=== PATIENT | female | born 1960 | race African-American/Black ===

== ENCOUNTER 2021-07-04 13:59 | Inpatient (IN) | payer OTHER ==
[~2021-07-04] VITALS: Ht 170.2 cm; Wt 83.1 kg
[2021-07-04] MEDS ORDERED: PIPERACILLIN/TAZ 3.375G PREMIX 50 ML IV ONE (14:30)
[2021-07-04] MEDS ORDERED: DEXAMETHASONE 4MG/ML 1ML VIAL IV ONE (14:30)
[2021-07-04 15:34] LABS: BASOPHILS % 0.4 % (0.0-2.0); EOSINOPHILS % 1.1 % (0.0-5.0); HEMATOCRIT. 24.8 % (36.0-48.0); LYMPHOCYTES % 15.2 % (20.0-50.0); MEAN CORPUSCULAR HEMOGLOBIN 30.3 pg (28.0-32.0); MEAN CORPUSCULAR VOLUME 94.5 fL (81.0-99.0); MEAN PLATELET VOLUME 9.8 fl (7.4-10.4); MONOCYTES % 5.5 % (2.0-8.0); NEUTROPHILS % 77.8 % (40.0-76.0); PLATELET 198 x1000/uL (130-400); RED BLOOD CELL COUNT 2.63 mill/uL (4.2-5.4); RED CELL DISTRIBUTION WIDTH 16.5 % (11.6-14.6)
[2021-07-04 15:40] LABS: CHLORIDE 117 mEq/L (98-107)
[2021-07-04 15:42] LABS: INR 1.6; PROTHROMBIN TIME 16.8 sec (9.6-11.0)
[2021-07-04] MEDS ORDERED: LACTULOSE 20G/30ML UDC PO NR (17:15)
[2021-07-04 17:25] LABS: CLARITY URINE CLEAR (CLEAR); COLOR URINE YELLOW (YELLOW); KETONES URINE TRACE (NEGATIVE); LEUKOCYTE ESTERASE URINE 1+ (NEGATIVE); NITRITE URINE NEGATIVE (NEGATIVE); OCCULT BLOOD URINE 1+ (NEGATIVE); PROTEIN URINE NEGATIVE (NEGATIVE); SPECIFIC GRAVITY URINE 1.014 (1.005-1.030)
[2021-07-04] MEDS ORDERED: GUAIFENESIN 200MG/10ML SUGAR FREE UDC PO PRN (18:15)
[2021-07-04] MEDS ORDERED: ACETAMINOPHEN 325MG TABLET PO PRN ×2 (18:15)
[2021-07-04] MEDS ORDERED: ENOXAPARIN 40MG/0.4ML SYR SUBCUT SCH (18:15)
[2021-07-04] MEDS ORDERED: HYDROCODONE/ACETAMINOPHEN 5/325MG TABLET PO PRN (18:15)
[2021-07-04] MEDS ORDERED: MAGNESIUM/ALUMINUM HYDROXIDE/SIMETHICONE 30ML UDC PO PRN (18:15)
[2021-07-04] MEDS ORDERED: IPRATROPIUM/ALBUTEROL 0.5-3(2.5)MG/3ML NEB NEB PRN (18:15)
[2021-07-04] MEDS ORDERED: CLONIDINE 0.1MG TABLET PO PRN (18:15)
[2021-07-04] MEDS: SODIUM CHLORIDE 0.45% 1,000 ML IV SCH (18:44)
[2021-07-04] MEDS ORDERED: CEFTRIAXONE 2 G PREMIX 50 ML IV SCH (19:00)
[2021-07-04] MEDS ORDERED: AZITHROMYCIN 500 MG TABLET PO NR (19:30)
[2021-07-04] MEDS: IPRATROPIUM/ALBUTEROL 0.5-3(2.5)MG/3ML NEB NEB SCH (20:02)
[2021-07-04 21:20] VITALS: BP 117/78
[2021-07-04 22:02] VITALS: BP 117/78
[2021-07-04] MEDS ORDERED: RIFA550T PO (22:28)
[2021-07-04] MEDS ORDERED: LEVO75TA7 PO (22:28)
[2021-07-04] MEDS ORDERED: FURO20TA4 PO (22:28)
[2021-07-04] MEDS ORDERED: AMLO5TAB88 PO (22:28)
[2021-07-04] MEDS: LACTULOSE 20G/30ML UDC PO SCH (22:52)
[2021-07-04] MEDS: ENOXAPARIN 30MG/0.3ML SYR SUBCUT SCH (22:53)
[2021-07-05] VITALS: BP 130/72
[2021-07-05] MEDS: IPRATROPIUM/ALBUTEROL 0.5-3(2.5)MG/3ML NEB NEB SCH ×6 (01:08→21:23)
[2021-07-05] MEDS: SODIUM CHLORIDE 0.45% 1,000 ML IV SCH ×2 (02:44→14:49)
[2021-07-05 03:45] LABS: PHOSPHORUS 3.3 mg/dL (2.5-4.9)
[2021-07-05 04:00] VITALS: BP 131/85
[2021-07-05] MEDS: LACTULOSE 20G/30ML UDC PO SCH ×2 (04:29→21:45)
[2021-07-05] MEDS: LEVOTHYROXINE SODIUM 75MCG TABLET PO SCH (04:29)
[2021-07-05 07:37] LABS: BASOPHILS % 0.1 % (0.0-2.0); EOSINOPHILS % 0.1 % (0.0-5.0); HEMATOCRIT. 25.8 % (36.0-48.0); HEMOGLOBIN. 8.4 g/dL (12.0-16.0); LYMPHOCYTES % 9.6 % (20.0-50.0); MEAN CORPUSCULAR HEMOGLOBIN 30.3 pg (28.0-32.0); MEAN CORPUSCULAR VOLUME 93.7 fL (81.0-99.0); MEAN PLATELET VOLUME 10.2 fl (7.4-10.4); MONOCYTES % 5.1 % (2.0-8.0); NEUTROPHILS % 85.1 % (40.0-76.0); PLATELET 208 x1000/uL (130-400); RED BLOOD CELL COUNT 2.75 mill/uL (4.2-5.4); RED CELL DISTRIBUTION WIDTH 16.5 % (11.6-14.6)
[2021-07-05 08:00] VITALS: BP 125/72
[2021-07-05] MEDS ORDERED: MAGNESIUM OXIDE 400MG TABLET PO NR (10:00)
[2021-07-05 11:04] LABS: BG BASE EXCESS -9.5 mmol/L (-2.0-2.0); BG CARBOXYHEMOGLOBIN 0.6 % (0.5-1.5); BG DEOXYHEMOGLOBIN 34.8 % (0.0-5.0); BG FRACTION INSPIRED OXYGEN 21; BG HCO3 ACT 15.5 mmol/L (22.0-26.0); BG METHEMOGLOBIN 0.1 % (0.0-1.5); BG OXYHEMOGLOBIN 64.5 % (94.0-97.0); BG PCO2 30.3 mmHg (35.0-45.0); BG PH 7.327 (7.350-7.450); BG PO2 39.3 mmHg (75.0-100.0); BG SAMPLE SITE RIGHT RADIAL; BG TOTAL HEMOGLOBIN 8.3 g/dL (12.0-18.0); BG VENT MODE ROOM AIR
[2021-07-05] MEDS ORDERED: FUROSEMIDE 40MG/4ML VIAL IVP SCH (12:30)
[2021-07-05] MEDS ORDERED: PHYTONADIONE 10MG/ML AMP SUBCUT NR (15:45)
[2021-07-05 16:00] VITALS: BP 128/77
[2021-07-05] MEDS: FUROSEMIDE 40MG/4ML VIAL IVP SCH (18:08)
[2021-07-05 20:00] VITALS: BP 140/64
[2021-07-05] MEDS: ENOXAPARIN 30MG/0.3ML SYR SUBCUT SCH (21:00)
[2021-07-05 21:03] LABS: FOLIC ACID (FOLATE) SERUM > 20.00 ng/mL (>5.38)
[2021-07-05 21:20] LABS: VITAMIN B12 SERUM > 2000.0 pg/mL (211-911)
[2021-07-05] MEDS: AZITHROMYCIN 250 MG TABLET PO SCH (21:45)
[2021-07-05] MEDS: CEFTRIAXONE 2 G in DEXTROSE 5% WATER 50 ML IV SCH (21:46)
[2021-07-06] VITALS (41 sets, daily range): BP systolic 70–146; BP diastolic 36–91
[2021-07-06] MEDS: IPRATROPIUM/ALBUTEROL 0.5-3(2.5)MG/3ML NEB NEB SCH ×6 (00:14→20:38)
[2021-07-06 05:30] LABS: BG BASE EXCESS -12.6 mmol/L (-2.0-2.0); BG CARBOXYHEMOGLOBIN 0.6 % (0.5-1.5); BG DEOXYHEMOGLOBIN 8.1 % (0.0-5.0); BG FRACTION INSPIRED OXYGEN 100; BG HCO3 ACT 12.8 mmol/L (22.0-26.0); BG METHEMOGLOBIN 0.1 % (0.0-1.5); BG OXYGEN SATURATION 91.8 % (92.0-98.5); BG OXYHEMOGLOBIN 91.2 % (94.0-97.0); BG PCO2 27.5 mmHg (35.0-45.0); BG PH 7.285 (7.350-7.450); BG PO2 79.3 mmHg (75.0-100.0); BG SAMPLE SITE RIGHT RADIAL; BG TOTAL HEMOGLOBIN 8.1 g/dL (12.0-18.0); BG VENT MODE MASK - NRB
[2021-07-06] MEDS: LEVOTHYROXINE SODIUM 75MCG TABLET PO SCH (06:50)
[2021-07-06] MEDS ORDERED: SODIUM BICARBONATE 8.4% 1 MEQ/ML 50ML SYR IV SCH ×2 (07:00→10:45)
[2021-07-06] MEDS ORDERED: PHYTONADIONE 10MG/ML AMP SUBCUT SCH (09:00)
[2021-07-06] MEDS ORDERED: LIDOCAINE HCL 1% 10 MG/ML 10ML VIAL ONE (09:18)
[2021-07-06] MEDS ORDERED: SODIUM BICARBONATE 4% (2.4MEQ) 5ML VIAL IV ONE (09:19)
[2021-07-06] MEDS: FUROSEMIDE 40MG/4ML VIAL IVP SCH ×2 (09:24→17:14)
[2021-07-06 09:26] LABS: BASOPHILS % 0.3 % (0.0-2.0); EOSINOPHILS % 0.5 % (0.0-5.0); HEMATOCRIT. 22.5 % (36.0-48.0); HEMOGLOBIN. 7.4 g/dL (12.0-16.0); LYMPHOCYTES % 11.9 % (20.0-50.0); MEAN CORPUSCULAR VOLUME 93.9 fL (81.0-99.0); MEAN PLATELET VOLUME 9.6 fl (7.4-10.4); MONOCYTES % 3.3 % (2.0-8.0); PLATELET 161 x1000/uL (130-400); RED CELL DISTRIBUTION WIDTH 16.7 % (11.6-14.6)
[2021-07-06 09:39] LABS: CHLORIDE 120 mEq/L (98-107)
[2021-07-06 09:43] LABS: INR 2.6; PROTHROMBIN TIME 26.1 sec (9.6-11.0)
[2021-07-06 09:46] LABS: PHOSPHORUS 3.9 mg/dL (2.5-4.9)
[2021-07-06 10:22] LABS: BG BASE EXCESS -8.5 mmol/L (-2.0-2.0); BG CARBOXYHEMOGLOBIN 0.5 % (0.5-1.5); BG DEOXYHEMOGLOBIN 6.5 % (0.0-5.0); BG FRACTION INSPIRED OXYGEN 100; BG HCO3 ACT 16.9 mmol/L (22.0-26.0); BG METHEMOGLOBIN 0.3 % (0.0-1.5); BG OXYGEN SATURATION 93.4 % (92.0-98.5); BG OXYHEMOGLOBIN 92.7 % (94.0-97.0); BG PCO2 34.4 mmHg (35.0-45.0); BG PO2 80.5 mmHg (75.0-100.0); BG SAMPLE SITE RIGHT RADIAL; BG TOTAL HEMOGLOBIN 7.7 g/dL (12.0-18.0); BG VENT MODE MASK - NRB
[2021-07-06] MEDS ORDERED: PHENYLEPHRINE 50 MG in DEXT 5% WATER 245 ML IV PRN (11:00)
[2021-07-06] MEDS ORDERED: DEXTROSE 5% IV SCH (12:00)
[2021-07-06] MEDS ORDERED: WATER IV SCH (12:00)
[2021-07-06] MEDS ORDERED: SODIUM BICARBONATE IV SCH (12:00)
[2021-07-06] MEDS: MIDODRINE HCL 5MG TABLET PO SCH ×2 (13:21→17:14)
[2021-07-06] MEDS ORDERED: NALOXONE HCL 0.4MG/ML VIAL IV PRN (14:30)
[2021-07-06] MEDS: PHYTONADIONE 10MG/ML AMP IM SCH ×2 (14:58→20:34)
[2021-07-06] MEDS: CEFTRIAXONE 2 G in DEXTROSE 5% WATER 50 ML IV SCH (20:34)
[2021-07-06] MEDS: AZITHROMYCIN 250 MG TABLET PO SCH (20:34)
[2021-07-06] MEDS: LACTULOSE 20G/30ML UDC PO SCH (20:34)
[2021-07-07] VITALS (33 sets, daily range): BP systolic 69–168; BP diastolic 19–113
[2021-07-07] MEDS: IPRATROPIUM/ALBUTEROL 0.5-3(2.5)MG/3ML NEB NEB SCH ×6 (00:26→20:30)
[2021-07-07] MEDS: PHYTONADIONE 10MG/ML AMP IM SCH (02:37)
[2021-07-07 04:52] LABS: BASOPHILS % 0.4 % (0.0-2.0); LYMPHOCYTES % 17.7 % (20.0-50.0); MEAN CORPUSCULAR HEMOGLOBIN 30.8 pg (28.0-32.0); MEAN CORPUSCULAR VOLUME 91.8 fL (81.0-99.0); MEAN PLATELET VOLUME 9.9 fl (7.4-10.4); NEUTROPHILS % 76.9 % (40.0-76.0); PLATELET 135 x1000/uL (130-400); RED BLOOD CELL COUNT 2.05 mill/uL (4.2-5.4); RED CELL DISTRIBUTION WIDTH 16.4 % (11.6-14.6)
[2021-07-07 04:58] LABS: CHLORIDE 119 mEq/L (98-107)
[2021-07-07 05:00] LABS: HEMATOCRIT. 18.8 % (36.0-48.0); HEMOGLOBIN. 6.3 g/dL (12.0-16.0)
[2021-07-07 05:03] LABS: PHOSPHORUS 3.3 mg/dL (2.5-4.9)
[2021-07-07 05:26] LABS: INR 2.1; PROTHROMBIN TIME 21.3 sec (9.6-11.0)
[2021-07-07] MEDS ORDERED: LIDOCAINE HCL 1% 10 MG/ML 10ML VIAL ONE (08:12)
[2021-07-07] MEDS ORDERED: SODIUM BICARBONATE 4% (2.4MEQ) 5ML VIAL IV ONE (08:13)
[2021-07-07 08:40] LABS: BG BASE EXCESS -1.7 mmol/L (-2.0-2.0); BG CARBOXYHEMOGLOBIN 0.9 % (0.5-1.5); BG DEOXYHEMOGLOBIN 14.7 % (0.0-5.0); BG FRACTION INSPIRED OXYGEN 100; BG HCO3 ACT 22.6 mmol/L (22.0-26.0); BG METHEMOGLOBIN 0.5 % (0.0-1.5); BG OXYGEN SATURATION 85.1 % (92.0-98.5); BG OXYHEMOGLOBIN 83.9 % (94.0-97.0); BG PCO2 35.5 mmHg (35.0-45.0); BG PH 7.421 (7.350-7.450); BG PO2 56.3 mmHg (75.0-100.0); BG SAMPLE SITE RIGHT RADIAL; BG TOTAL HEMOGLOBIN 6.5 g/dL (12.0-18.0); BG VENT MODE MASK - NRB
[2021-07-07] MEDS: FUROSEMIDE 40MG/4ML VIAL IVP SCH ×2 (09:39→17:01)
[2021-07-07] MEDS: LEVOTHYROXINE SODIUM 75MCG TABLET PO SCH (09:39)
[2021-07-07] MEDS: MIDODRINE HCL 5MG TABLET PO SCH ×3 (09:39→17:00)
[2021-07-07] MEDS ORDERED: MAGNESIUM 2 G PREMIX 50 ML IV NR (11:00)
[2021-07-07] MEDS: DEXTROSE 5% WATER 1,000 ML IV SCH ×2 (11:29→21:09)
[2021-07-07] MEDS ORDERED: POTASSIUM CHLORIDE 20MEQ/PACKET PO NR (13:00)
[2021-07-07] MEDS: LACTULOSE 20G/30ML UDC PO SCH (21:07)
[2021-07-07] MEDS: CEFTRIAXONE 2 G in DEXTROSE 5% WATER 50 ML IV SCH (21:07)
[2021-07-07] MEDS: AZITHROMYCIN 250 MG TABLET PO SCH (21:07)
[2021-07-08] VITALS (16 sets, daily range): BP systolic 107–151; BP diastolic 54–92
[2021-07-08] MEDS: IPRATROPIUM/ALBUTEROL 0.5-3(2.5)MG/3ML NEB NEB SCH ×6 (00:31→20:46)
[2021-07-08] MEDS: LEVOTHYROXINE SODIUM 75MCG TABLET PO SCH (06:05)
[2021-07-08 06:34] LABS: BASOPHILS % 0.3 % (0.0-2.0); EOSINOPHILS % 2.8 % (0.0-5.0); HEMATOCRIT. 23.9 % (36.0-48.0); HEMOGLOBIN. 8.2 g/dL (12.0-16.0); MEAN CORPUSCULAR HEMOGLOBIN 31.2 pg (28.0-32.0); MEAN CORPUSCULAR VOLUME 90.6 fL (81.0-99.0); MEAN PLATELET VOLUME 10.2 fl (7.4-10.4); MONOCYTES % 2.7 % (2.0-8.0); NEUTROPHILS % 75.2 % (40.0-76.0); PLATELET 104 x1000/uL (130-400); RED BLOOD CELL COUNT 2.64 mill/uL (4.2-5.4); RED CELL DISTRIBUTION WIDTH 16.2 % (11.6-14.6)
[2021-07-08 06:43] LABS: INR 1.8; PROTHROMBIN TIME 18.8 sec (9.6-11.0)
[2021-07-08 07:07] LABS: PHOSPHORUS 2.5 mg/dL (2.5-4.9)
[2021-07-08 07:13] LABS: *CREATININE RANDOM URINE 41.4 mg/dL (Not Estab.); MICROALBUMIN RANDOM URINE <3.0 ug/mL (Not Estab.)
[2021-07-08 08:52] LABS: BG CARBOXYHEMOGLOBIN 0.6 % (0.5-1.5); BG DEOXYHEMOGLOBIN 8.6 % (0.0-5.0); BG FRACTION INSPIRED OXYGEN 100; BG HCO3 ACT 22.1 mmol/L (22.0-26.0); BG METHEMOGLOBIN 0.3 % (0.0-1.5); BG OXYGEN SATURATION 91.3 % (92.0-98.5); BG OXYHEMOGLOBIN 90.5 % (94.0-97.0); BG PCO2 30.6 mmHg (35.0-45.0); BG PH 7.476 (7.350-7.450); BG SAMPLE SITE LEFT RADIAL; BG TOTAL HEMOGLOBIN 8.9 g/dL (12.0-18.0); BG VENT MODE VAPOTHERM
[2021-07-08] MEDS: MIDODRINE HCL 5MG TABLET PO SCH ×3 (09:04→17:07)
[2021-07-08] MEDS ORDERED: FUROSEMIDE 40MG/4ML VIAL IVP SCH (11:00)
[2021-07-08] MEDS ORDERED: POTASSIUM CHLORIDE 20MEQ TABLET SR PO NR (11:00)
[2021-07-08] MEDS: DEXTROSE 5% WATER 1,000 ML IV SCH (13:04)
[2021-07-08] MEDS ORDERED: FUROSEMIDE 40MG/4ML VIAL IVP NR (15:45)
[2021-07-08] MEDS: FUROSEMIDE 40MG/4ML VIAL IVP SCH (16:46)
[2021-07-08] MEDS: AZITHROMYCIN 250 MG TABLET PO SCH (17:07)
[2021-07-08] MEDS: CEFTRIAXONE 2 G in DEXTROSE 5% WATER 50 ML IV SCH (21:56)
[2021-07-08] MEDS: LACTULOSE 20G/30ML UDC PO SCH (21:56)
[2021-07-09] VITALS (11 sets, daily range): BP systolic 113–163; BP diastolic 59–92
[2021-07-09] MEDS: IPRATROPIUM/ALBUTEROL 0.5-3(2.5)MG/3ML NEB NEB SCH ×5 (04:30→20:22)
[2021-07-09] MEDS: LEVOTHYROXINE SODIUM 75MCG TABLET PO SCH (06:50)
[2021-07-09] MEDS: FUROSEMIDE 40MG/4ML VIAL IVP SCH (06:51)
[2021-07-09 07:04] LABS: BASOPHILS % 0.3 % (0.0-2.0); EOSINOPHILS % 2.2 % (0.0-5.0); HEMATOCRIT. 27.4 % (36.0-48.0); HEMOGLOBIN. 9.2 g/dL (12.0-16.0); LYMPHOCYTES % 14.4 % (20.0-50.0); MEAN CORPUSCULAR HEMOGLOBIN 30.6 pg (28.0-32.0); MEAN CORPUSCULAR VOLUME 91.4 fL (81.0-99.0); MEAN PLATELET VOLUME 10.5 fl (7.4-10.4); MONOCYTES % 2.6 % (2.0-8.0); NEUTROPHILS % 80.5 % (40.0-76.0); PLATELET 81 x1000/uL (130-400); RED BLOOD CELL COUNT 2.99 mill/uL (4.2-5.4); RED CELL DISTRIBUTION WIDTH 16.3 % (11.6-14.6)
[2021-07-09 07:28] LABS: INR 1.8; PROTHROMBIN TIME 18.6 sec (9.6-11.0)
[2021-07-09 07:29] LABS: CHLORIDE 113 mEq/L (98-107)
[2021-07-09 07:39] LABS: PHOSPHORUS 2.3 mg/dL (2.5-4.9)
[2021-07-09] MEDS: MIDODRINE HCL 5MG TABLET PO SCH (08:16)
[2021-07-09] MEDS: DEXTROSE 5% WATER 1,000 ML IV SCH (08:46)
[2021-07-09] MEDS ORDERED: FUROSEMIDE 40MG/4ML VIAL IVP NR (10:45)
[2021-07-09] MEDS ORDERED: MAGNESIUM 2 G PREMIX 50 ML IV SCH (11:00)
[2021-07-09] MEDS: METOLAZONE 5MG TABLET PO SCH (11:20)
[2021-07-09 12:03] LABS: BG BASE EXCESS 0.1 mmol/L (-2.0-2.0); BG CARBOXYHEMOGLOBIN 0.3 % (0.5-1.5); BG DEOXYHEMOGLOBIN 11.3 % (0.0-5.0); BG FRACTION INSPIRED OXYGEN 100; BG HCO3 ACT 23.8 mmol/L (22.0-26.0); BG METHEMOGLOBIN 0.2 % (0.0-1.5); BG OXYGEN SATURATION 88.6 % (92.0-98.5); BG OXYHEMOGLOBIN 88.2 % (94.0-97.0); BG PCO2 35.1 mmHg (35.0-45.0); BG PO2 58.2 mmHg (75.0-100.0); BG SAMPLE SITE RIGHT RADIAL; BG TOTAL HEMOGLOBIN 9.9 g/dL (12.0-18.0); BG VENT MODE VAPO
[2021-07-09] MEDS: KCL 20MEQ/100ML PREMIX 100 ML IV SCH ×2 (12:54→15:09)
[2021-07-09] MEDS ORDERED: POTASSIUM PHOS,M-BASIC-D-BASIC 20 MMOL in DEXT 5% WATER 243.3333 ML IV NR (16:30)
[2021-07-09] MEDS ORDERED: HEPARIN 80 UNITS/KG BOLUS IV SCH (18:00)
[2021-07-09] MEDS: FUROSEMIDE 100MG/10ML VIAL IVP SCH (18:19)
[2021-07-09] MEDS ORDERED: HEPARIN BOLUS PRN aPTT 37-44 IV (19:00)
[2021-07-09] MEDS ORDERED: HEPARIN BOLUS PRN aPTT <36 IV (19:00)
[2021-07-09] MEDS: HEPARIN 25,000 UNITS in DEXT 5% WATER 245 ML IV SCH (19:56)
[2021-07-09] MEDS: LACTULOSE 20G/30ML UDC PO SCH (21:05)
[2021-07-09] MEDS: CEFTRIAXONE 2 G in DEXTROSE 5% WATER 50 ML IV SCH (21:14)
[2021-07-10] VITALS (12 sets, daily range): BP systolic 104–153; BP diastolic 53–106
[2021-07-10] MEDS: IPRATROPIUM/ALBUTEROL 0.5-3(2.5)MG/3ML NEB NEB SCH ×6 (00:23→20:52)
[2021-07-10 04:10] LABS: BASOPHILS % 0.3 % (0.0-2.0); EOSINOPHILS % 4.6 % (0.0-5.0); HEMATOCRIT. 25.7 % (36.0-48.0); HEMOGLOBIN. 8.6 g/dL (12.0-16.0); LYMPHOCYTES % 18.8 % (20.0-50.0); MEAN CORPUSCULAR VOLUME 92.5 fL (81.0-99.0); MEAN PLATELET VOLUME 10.7 fl (7.4-10.4); MONOCYTES % 3.6 % (2.0-8.0); NEUTROPHILS % 72.7 % (40.0-76.0); PLATELET 51 x1000/uL (130-400); RED BLOOD CELL COUNT 2.78 mill/uL (4.2-5.4); RED CELL DISTRIBUTION WIDTH 16.7 % (11.6-14.6)
[2021-07-10 04:31] LABS: PHOSPHORUS 3.3 mg/dL (2.5-4.9)
[2021-07-10] MEDS: FUROSEMIDE 100MG/10ML VIAL IVP SCH ×2 (06:52→17:09)
[2021-07-10] MEDS: DEXTROSE 5% WATER 1,000 ML IV SCH (06:52)
[2021-07-10] MEDS: LACTULOSE 20G/30ML UDC PO SCH ×3 (06:52→22:07)
[2021-07-10] MEDS: LEVOTHYROXINE SODIUM 75MCG TABLET PO SCH (06:53)
[2021-07-10 07:27] LABS: INR 2.2; PROTHROMBIN TIME 22.4 sec (9.6-11.0)
[2021-07-10 07:42] LABS: BG BASE EXCESS 0.1 mmol/L (-2.0-2.0); BG CARBOXYHEMOGLOBIN 0.2 % (0.5-1.5); BG DEOXYHEMOGLOBIN 2.1 % (0.0-5.0); BG HCO3 ACT 24.7 mmol/L (22.0-26.0); BG METHEMOGLOBIN 0.2 % (0.0-1.5); BG OXYGEN SATURATION 97.9 % (92.0-98.5); BG OXYHEMOGLOBIN 97.5 % (94.0-97.0); BG PCO2 39.8 mmHg (35.0-45.0); BG PH 7.411 (7.350-7.450); BG PO2 136.4 mmHg (75.0-100.0); BG SAMPLE SITE RIGHT RADIAL; BG TOTAL HEMOGLOBIN 8.9 g/dL (12.0-18.0); BG VENT MODE MASK - BIPAP
[2021-07-10 08:03] LABS: INR 2.2; PROTHROMBIN TIME 22.4 sec (9.6-11.0)
[2021-07-10] MEDS: METOLAZONE 5MG TABLET PO SCH (08:14)
[2021-07-10 08:27] LABS: PARTIAL THROMBOPLASTIN TIME > 200.0 sec (23.4-31.0)
[2021-07-10] MEDS ORDERED: SPIRONOLACTONE 25MG TABLET PO SCH (13:15)
[2021-07-10] MEDS: METHYLPREDNISOLONE SOD SUCC 125 MG/2 ML VIAL IV SCH ×2 (13:30→22:07)
[2021-07-10] MEDS ORDERED: POTASSIUM CHLORIDE 20MEQ/PACKET PO NR (13:30)
[2021-07-10 15:59] LABS: HEMATOCRIT 28.5 % (36.0-48.0); HEMOGLOBIN 9.5 g/dL (12.0-16.0); MEAN CORPUSCULAR HEMOGLOBIN 31.2 pg (28.0-32.0); MEAN CORPUSCULAR VOLUME 93.2 fL (81.0-99.0); RED BLOOD CELL COUNT 3.06 mill/uL (4.2-5.4); RED CELL DISTRIBUTION WIDTH 17.6 % (11.6-14.6)
[2021-07-10 16:02] LABS: PLATELET 48 x1000/uL (130-400)
[2021-07-10] MEDS: CEFTRIAXONE 2 G in DEXTROSE 5% WATER 50 ML IV SCH (21:35)
[2021-07-11] VITALS (24 sets, daily range): BP systolic 118–147; BP diastolic 45–88
[2021-07-11 03:33] LABS: BASOPHILS % 0.4 % (0.0-2.0); EOSINOPHILS % 0.1 % (0.0-5.0); HEMOGLOBIN. 9.1 g/dL (12.0-16.0); LYMPHOCYTES % 9.4 % (20.0-50.0); MEAN CORPUSCULAR HEMOGLOBIN 31.2 pg (28.0-32.0); MEAN CORPUSCULAR VOLUME 92.9 fL (81.0-99.0); MEAN PLATELET VOLUME 9.2 fl (7.4-10.4); MONOCYTES % 3.9 % (2.0-8.0); NEUTROPHILS % 86.2 % (40.0-76.0); PLATELET 72 x1000/uL (130-400); RED CELL DISTRIBUTION WIDTH 17.8 % (11.6-14.6)
[2021-07-11 03:41] LABS: CHLORIDE 111 mEq/L (98-107)
[2021-07-11 03:46] LABS: INR 1.9; PARTIAL THROMBOPLASTIN TIME 41.8 sec (23.4-31.0); PROTHROMBIN TIME 19.2 sec (9.6-11.0)
[2021-07-11 03:48] LABS: PHOSPHORUS 4.7 mg/dL (2.5-4.9)
[2021-07-11] MEDS: IPRATROPIUM/ALBUTEROL 0.5-3(2.5)MG/3ML NEB NEB SCH ×5 (05:02→20:44)
[2021-07-11] MEDS: LACTULOSE 20G/30ML UDC PO SCH ×3 (06:34→22:15)
[2021-07-11] MEDS: LEVOTHYROXINE SODIUM 75MCG TABLET PO SCH (06:35)
[2021-07-11] MEDS: FUROSEMIDE 100MG/10ML VIAL IVP SCH ×3 (06:35→16:54)
[2021-07-11] MEDS: METHYLPREDNISOLONE SOD SUCC 125 MG/2 ML VIAL IV SCH ×3 (06:35→22:15)
[2021-07-11] MEDS: METOLAZONE 5MG TABLET PO SCH (08:42)
[2021-07-11 08:51] LABS: BG BASE EXCESS -2.7 mmol/L (-2.0-2.0); BG CARBOXYHEMOGLOBIN 0.3 % (0.5-1.5); BG DEOXYHEMOGLOBIN 3.8 % (0.0-5.0); BG FRACTION INSPIRED OXYGEN 80; BG HCO3 ACT 21.6 mmol/L (22.0-26.0); BG METHEMOGLOBIN 0.2 % (0.0-1.5); BG OXYGEN SATURATION 96.2 % (92.0-98.5); BG OXYHEMOGLOBIN 95.7 % (94.0-97.0); BG PCO2 35.1 mmHg (35.0-45.0); BG PH 7.407 (7.350-7.450); BG PO2 92.2 mmHg (75.0-100.0); BG SAMPLE SITE RIGHT RADIAL; BG TOTAL HEMOGLOBIN 9.2 g/dL (12.0-18.0); BG VENT MODE MASK - BIPAP
[2021-07-11] MEDS: SPIRONOLACTONE 25MG TABLET PO SCH ×2 (09:40→22:16)
[2021-07-11 15:08] LABS: BASOPHILS % 0.2 % (0.0-2.0); HEMATOCRIT. 25.4 % (36.0-48.0); HEMOGLOBIN. 8.5 g/dL (12.0-16.0); LYMPHOCYTES % 14.5 % (20.0-50.0); MEAN CORPUSCULAR HEMOGLOBIN 31.3 pg (28.0-32.0); MEAN CORPUSCULAR VOLUME 94.1 fL (81.0-99.0); MEAN PLATELET VOLUME 9.8 fl (7.4-10.4); MONOCYTES % 4.4 % (2.0-8.0); NEUTROPHILS % 80.9 % (40.0-76.0); PLATELET 67 x1000/uL (130-400); RED CELL DISTRIBUTION WIDTH 17.6 % (11.6-14.6)
[2021-07-11] MEDS ORDERED: HEPARIN BOLUS PRN aPTT <36 IV (20:49)
[2021-07-11] MEDS: HEPARIN 25,000 UNITS in DEXT 5% WATER 245 ML IV SCH (21:06)
[2021-07-11] MEDS: CEFTRIAXONE 2 G in DEXTROSE 5% WATER 50 ML IV SCH (22:14)
[2021-07-12] VITALS (12 sets, daily range): BP systolic 122–158; BP diastolic 46–89
[2021-07-12] MEDS ORDERED: HYDROXYZINE 25MG TABLET PO PRN (00:30)
[2021-07-12] MEDS: IPRATROPIUM/ALBUTEROL 0.5-3(2.5)MG/3ML NEB NEB SCH ×6 (00:33→20:55)
[2021-07-12 03:00] LABS: INR 1.8; PROTHROMBIN TIME 18.7 sec (9.6-11.0)
[2021-07-12 03:53] LABS: PARTIAL THROMBOPLASTIN TIME 178.6 sec (23.4-31.0)
[2021-07-12] MEDS: METHYLPREDNISOLONE SOD SUCC 125 MG/2 ML VIAL IV SCH ×3 (06:12→21:59)
[2021-07-12] MEDS: LACTULOSE 20G/30ML UDC PO SCH ×3 (06:12→21:57)
[2021-07-12] MEDS: LEVOTHYROXINE SODIUM 75MCG TABLET PO SCH (06:12)
[2021-07-12 07:13] LABS: BASOPHILS % 0.2 % (0.0-2.0); EOSINOPHILS % 0.9 % (0.0-5.0); HEMATOCRIT. 26.5 % (36.0-48.0); HEMOGLOBIN. 8.8 g/dL (12.0-16.0); MEAN CORPUSCULAR HEMOGLOBIN 31.1 pg (28.0-32.0); MEAN CORPUSCULAR VOLUME 93.5 fL (81.0-99.0); MEAN PLATELET VOLUME 10.8 fl (7.4-10.4); MONOCYTES % 4.1 % (2.0-8.0); NEUTROPHILS % 84.8 % (40.0-76.0); PLATELET 64 x1000/uL (130-400); RED BLOOD CELL COUNT 2.83 mill/uL (4.2-5.4); RED CELL DISTRIBUTION WIDTH 18.9 % (11.6-14.6)
[2021-07-12 07:15] LABS: PHOSPHORUS 4.4 mg/dL (2.5-4.9)
[2021-07-12] MEDS: METOLAZONE 5MG TABLET PO SCH (08:27)
[2021-07-12] MEDS: SPIRONOLACTONE 25MG TABLET PO SCH ×2 (08:27→21:58)
[2021-07-12] MEDS: FUROSEMIDE 100MG/10ML VIAL IVP SCH (08:27)
[2021-07-12 08:38] LABS: BG BASE EXCESS 0.2 mmol/L (-2.0-2.0); BG CARBOXYHEMOGLOBIN 0.3 % (0.5-1.5); BG FRACTION INSPIRED OXYGEN 80; BG HCO3 ACT 24.4 mmol/L (22.0-26.0); BG METHEMOGLOBIN 0.2 % (0.0-1.5); BG OXYGEN SATURATION 89.9 % (92.0-98.5); BG OXYHEMOGLOBIN 89.5 % (94.0-97.0); BG PCO2 37.7 mmHg (35.0-45.0); BG PH 7.429 (7.350-7.450); BG PO2 63.2 mmHg (75.0-100.0); BG SAMPLE SITE RIGHT RADIAL; BG TOTAL HEMOGLOBIN 8.8 g/dL (12.0-18.0); BG VENT MODE MASK - BIPAP
[2021-07-12] MEDS ORDERED: POTASSIUM CHLORIDE 20MEQ/PACKET PO NR (12:45)
[2021-07-12] MEDS: CEFTRIAXONE 2 G in DEXTROSE 5% WATER 50 ML IV SCH (21:59)
[2021-07-13] VITALS (15 sets, daily range): BP systolic 137–161; BP diastolic 56–98
[2021-07-13] MEDS: IPRATROPIUM/ALBUTEROL 0.5-3(2.5)MG/3ML NEB NEB SCH ×6 (02:42→22:15)
[2021-07-13] MEDS: LACTULOSE 20G/30ML UDC PO SCH ×3 (06:35→21:52)
[2021-07-13] MEDS: METOLAZONE 5MG TABLET PO SCH (06:35)
[2021-07-13] MEDS: METHYLPREDNISOLONE SOD SUCC 125 MG/2 ML VIAL IV SCH ×3 (06:35→21:51)
[2021-07-13] MEDS: LEVOTHYROXINE SODIUM 75MCG TABLET PO SCH (06:35)
[2021-07-13 08:00] LABS: BG BASE EXCESS 0.1 mmol/L (-2.0-2.0); BG CARBOXYHEMOGLOBIN 0.3 % (0.5-1.5); BG DEOXYHEMOGLOBIN 6.7 % (0.0-5.0); BG FRACTION INSPIRED OXYGEN 85; BG HCO3 ACT 23.8 mmol/L (22.0-26.0); BG METHEMOGLOBIN 0.2 % (0.0-1.5); BG OXYGEN SATURATION 93.3 % (92.0-98.5); BG OXYHEMOGLOBIN 92.8 % (94.0-97.0); BG PCO2 34.7 mmHg (35.0-45.0); BG PH 7.455 (7.350-7.450); BG PO2 70.8 mmHg (75.0-100.0); BG SAMPLE SITE RIGHT BRACHIAL; BG TOTAL HEMOGLOBIN 8.8 g/dL (12.0-18.0); BG VENT MODE MASK - BIPAP
[2021-07-13 08:33] LABS: PHOSPHORUS 3.9 mg/dL (2.5-4.9)
[2021-07-13 08:58] LABS: HEMATOCRIT. 25.4 % (36.0-48.0); HEMOGLOBIN. 8.4 g/dL (12.0-16.0); MEAN CORPUSCULAR HEMOGLOBIN 31.3 pg (28.0-32.0); MEAN CORPUSCULAR VOLUME 94.5 fL (81.0-99.0); MEAN PLATELET VOLUME 11.1 fl (7.4-10.4); RED BLOOD CELL COUNT 2.69 mill/uL (4.2-5.4); RED CELL DISTRIBUTION WIDTH 20.1 % (11.6-14.6)
[2021-07-13 09:01] LABS: PLATELET 40 x1000/uL (130-400)
[2021-07-13] MEDS: SPIRONOLACTONE 25MG TABLET PO SCH ×2 (09:44→21:51)
[2021-07-13 14:45] LABS: NUCLEATED RED BLOOD CELLS 1 /100 WBC; PLATELET ESTIMATE MARKEDLY DECREASED
[2021-07-13] MEDS ORDERED: POTASSIUM CHLORIDE INJ 40 MEQ in DEXT 5% WATER 250 ML IV NR (18:00)
[2021-07-13 21:26] LABS: MEAN CORPUSCULAR HEMOGLOBIN 30.9 pg (28.0-32.0); MEAN PLATELET VOLUME 8.8 fl (7.4-10.4); PLATELET 107 x1000/uL (130-400); RED BLOOD CELL COUNT 2.27 mill/uL (4.2-5.4); RED CELL DISTRIBUTION WIDTH 19.8 % (11.6-14.6)
[2021-07-13 21:37] LABS: HEMATOCRIT. 21.5 % (36.0-48.0)
[2021-07-13] MEDS: HEPARIN 25,000 UNITS in DEXT 5% WATER 245 ML IV SCH (21:56)
[2021-07-13 22:28] LABS: NUCLEATED RED BLOOD CELLS 2 /100 WBC
[2021-07-13 22:29] LABS: PLATELET ESTIMATE DECREASED
[2021-07-14] VITALS (16 sets, daily range): BP systolic 109–162; BP diastolic 51–104
[2021-07-14] MEDS: IPRATROPIUM/ALBUTEROL 0.5-3(2.5)MG/3ML NEB NEB SCH ×5 (02:15→21:01)
[2021-07-14 06:18] LABS: HEMATOCRIT. 26.9 % (36.0-48.0); HEMOGLOBIN. 9.2 g/dL (12.0-16.0); MEAN CORPUSCULAR HEMOGLOBIN 31.5 pg (28.0-32.0); MEAN CORPUSCULAR VOLUME 92.1 fL (81.0-99.0); PLATELET 58 x1000/uL (130-400); RED BLOOD CELL COUNT 2.92 mill/uL (4.2-5.4); RED CELL DISTRIBUTION WIDTH 16.4 % (11.6-14.6)
[2021-07-14] MEDS: LEVOTHYROXINE SODIUM 75MCG TABLET PO SCH (06:55)
[2021-07-14] MEDS: METOLAZONE 5MG TABLET PO SCH (06:55)
[2021-07-14] MEDS: METHYLPREDNISOLONE SOD SUCC 125 MG/2 ML VIAL IV SCH ×3 (06:55→22:09)
[2021-07-14] MEDS: LACTULOSE 20G/30ML UDC PO SCH ×3 (06:55→22:09)
[2021-07-14 08:33] LABS: BG BASE EXCESS 0.1 mmol/L (-2.0-2.0); BG CARBOXYHEMOGLOBIN 0.3 % (0.5-1.5); BG DEOXYHEMOGLOBIN 5.8 % (0.0-5.0); BG FRACTION INSPIRED OXYGEN 85; BG HCO3 ACT 24.5 mmol/L (22.0-26.0); BG METHEMOGLOBIN 0.5 % (0.0-1.5); BG OXYGEN SATURATION 94.2 % (92.0-98.5); BG OXYHEMOGLOBIN 93.4 % (94.0-97.0); BG PCO2 38.8 mmHg (35.0-45.0); BG PH 7.418 (7.350-7.450); BG PO2 71.5 mmHg (75.0-100.0); BG SAMPLE SITE RIGHT RADIAL; BG TOTAL HEMOGLOBIN 9.9 g/dL (12.0-18.0); BG TOTAL RESPIRATORY RATE 21 b/min; BG VENT MODE MASK - BIPAP
[2021-07-14 08:46] LABS: PHOSPHORUS 4.3 mg/dL (2.5-4.9)
[2021-07-14] MEDS ORDERED: HEPARIN BOLUS PRN aPTT <36 IV (08:51)
[2021-07-14] MEDS: SPIRONOLACTONE 25MG TABLET PO SCH ×2 (09:01→22:09)
[2021-07-14] MEDS: KCL 20MEQ/100ML PREMIX 100 ML IV SCH ×2 (12:10→14:34)
[2021-07-14] MEDS ORDERED: DILTIAZEM HCL 125 MG in DEXT 5% WATER 100 ML IV SCH (13:30)
[2021-07-14 14:07] LABS: PLATELET ESTIMATE DECREASED
[2021-07-14] MEDS: DEXTROSE 5% WATER 1,000 ML IV SCH (14:42)
[2021-07-14] MEDS: FUROSEMIDE 100MG/10ML VIAL IVP SCH (19:20)
[2021-07-15] VITALS (12 sets, daily range): BP systolic 106–168; BP diastolic 53–91
[2021-07-15] MEDS: IPRATROPIUM/ALBUTEROL 0.5-3(2.5)MG/3ML NEB NEB SCH ×6 (00:45→20:48)
[2021-07-15] MEDS: METOLAZONE 5MG TABLET PO SCH (06:55)
[2021-07-15] MEDS: FUROSEMIDE 100MG/10ML VIAL IVP SCH ×2 (06:55→17:54)
[2021-07-15] MEDS: LACTULOSE 20G/30ML UDC PO SCH ×3 (06:55→21:32)
[2021-07-15] MEDS: METHYLPREDNISOLONE SOD SUCC 125 MG/2 ML VIAL IV SCH ×3 (06:55→21:32)
[2021-07-15] MEDS: LEVOTHYROXINE SODIUM 75MCG TABLET PO SCH (06:55)
[2021-07-15 07:08] LABS: INR 1.5; PROTHROMBIN TIME 15.6 sec (9.6-11.0)
[2021-07-15] MEDS: DEXTROSE 5% WATER 1,000 ML IV SCH (07:10)
[2021-07-15 07:15] LABS: HEMATOCRIT. 28.2 % (36.0-48.0); HEMOGLOBIN. 9.1 g/dL (12.0-16.0); MEAN CORPUSCULAR HEMOGLOBIN 31.4 pg (28.0-32.0); MEAN CORPUSCULAR VOLUME 97.4 fL (81.0-99.0); MEAN PLATELET VOLUME 11.4 fl (7.4-10.4); RED BLOOD CELL COUNT 2.89 mill/uL (4.2-5.4); RED CELL DISTRIBUTION WIDTH 18.9 % (11.6-14.6)
[2021-07-15 07:36] LABS: PHOSPHORUS 3.9 mg/dL (2.5-4.9)
[2021-07-15 07:50] LABS: BG BASE EXCESS -1.7 mmol/L (-2.0-2.0); BG CARBOXYHEMOGLOBIN 0.4 % (0.5-1.5); BG DEOXYHEMOGLOBIN 3.5 % (0.0-5.0); BG HCO3 ACT 22.7 mmol/L (22.0-26.0); BG METHEMOGLOBIN 0.2 % (0.0-1.5); BG OXYGEN SATURATION 96.5 % (92.0-98.5); BG OXYHEMOGLOBIN 95.9 % (94.0-97.0); BG PCO2 36.8 mmHg (35.0-45.0); BG PH 7.408 (7.350-7.450); BG PO2 96.2 mmHg (75.0-100.0); BG SAMPLE SITE RIGHT BRACHIAL; BG TOTAL HEMOGLOBIN 9.5 g/dL (12.0-18.0); BG VENT MODE MASK - BIPAP
[2021-07-15] MEDS ORDERED: POTASSIUM CHLORIDE INJ 40 MEQ in DEXT 5% WATER 250 ML IV ONE ×2 (09:30→13:15)
[2021-07-15] MEDS: PANTOPRAZOLE SODIUM 40 MG/VIAL IV SCH ×2 (09:48→17:53)
[2021-07-15] MEDS: SPIRONOLACTONE 25MG TABLET PO SCH ×2 (09:48→21:32)
[2021-07-15 12:11] LABS: BG BASE EXCESS -2.3 mmol/L (-2.0-2.0); BG CARBOXYHEMOGLOBIN 0.3 % (0.5-1.5); BG DEOXYHEMOGLOBIN 1.1 % (0.0-5.0); BG FRACTION INSPIRED OXYGEN 100; BG HCO3 ACT 22.2 mmol/L (22.0-26.0); BG METHEMOGLOBIN 0.1 % (0.0-1.5); BG OXYGEN SATURATION 98.9 % (92.0-98.5); BG OXYHEMOGLOBIN 98.5 % (94.0-97.0); BG PCO2 36.8 mmHg (35.0-45.0); BG PH 7.399 (7.350-7.450); BG SAMPLE SITE RIGHT RADIAL; BG TOTAL HEMOGLOBIN 9.1 g/dL (12.0-18.0); BG TOTAL RESPIRATORY RATE 24 b/min; BG VENT MODE MASK - BIPAP
[2021-07-15] MEDS: KCL 20MEQ/100ML PREMIX 100 ML IV SCH ×4 (12:29→21:33)
[2021-07-15 15:02] LABS: PLATELET ESTIMATE MARKEDLY DECREASED
[2021-07-15 15:03] LABS: PLATELET 48 x1000/uL (130-400)
[2021-07-16] VITALS (16 sets, daily range): BP systolic 132–169; BP diastolic 63–95
[2021-07-16] MEDS: IPRATROPIUM/ALBUTEROL 0.5-3(2.5)MG/3ML NEB NEB SCH ×6 (00:50→21:32)
[2021-07-16] MEDS: LACTULOSE 20G/30ML UDC PO SCH ×3 (05:37→23:37)
[2021-07-16] MEDS: METHYLPREDNISOLONE SOD SUCC 125 MG/2 ML VIAL IV SCH ×3 (05:37→23:41)
[2021-07-16] MEDS: FUROSEMIDE 100MG/10ML VIAL IVP SCH ×2 (05:37→21:16)
[2021-07-16] MEDS: DEXTROSE 5% WATER 1,000 ML IV SCH ×2 (05:37→16:40)
[2021-07-16] MEDS: METOLAZONE 5MG TABLET PO SCH ×2 (06:57→09:23)
[2021-07-16] MEDS: LEVOTHYROXINE SODIUM 75MCG TABLET PO SCH (06:57)
[2021-07-16 07:35] LABS: PHOSPHORUS 3.5 mg/dL (2.5-4.9)
[2021-07-16 07:43] LABS: HEMATOCRIT. 27.8 % (36.0-48.0); HEMOGLOBIN. 9.4 g/dL (12.0-16.0); MEAN CORPUSCULAR HEMOGLOBIN 31.1 pg (28.0-32.0); MEAN CORPUSCULAR VOLUME 92.6 fL (81.0-99.0); RED BLOOD CELL COUNT 3.01 mill/uL (4.2-5.4); RED CELL DISTRIBUTION WIDTH 18.2 % (11.6-14.6)
[2021-07-16 09:04] LABS: NUCLEATED RED BLOOD CELLS 1 /100 WBC
[2021-07-16 09:05] LABS: PLATELET 37 x1000/uL (130-400); PLATELET ESTIMATE MARKEDLY DECREASED
[2021-07-16] MEDS: PANTOPRAZOLE SODIUM 40 MG/VIAL IV SCH ×2 (09:23→16:43)
[2021-07-16] MEDS: SPIRONOLACTONE 25MG TABLET PO SCH ×2 (10:27→21:17)
[2021-07-16 13:06] LABS: *CREATININE RANDOM URINE 103.1 mg/dL (Not Estab.); MICROALBUMIN RANDOM URINE 20.2 ug/mL (Not Estab.)
[2021-07-17] VITALS (12 sets, daily range): BP systolic 137–162; BP diastolic 59–98
[2021-07-17] MEDS: IPRATROPIUM/ALBUTEROL 0.5-3(2.5)MG/3ML NEB NEB SCH ×6 (00:22→20:08)
[2021-07-17] MEDS: FUROSEMIDE 100MG/10ML VIAL IVP SCH ×2 (06:00→19:08)
[2021-07-17] MEDS: METHYLPREDNISOLONE SOD SUCC 125 MG/2 ML VIAL IV SCH (06:52)
[2021-07-17] MEDS: LACTULOSE 20G/30ML UDC PO SCH ×2 (06:52→14:00)
[2021-07-17] MEDS: LEVOTHYROXINE SODIUM 75MCG TABLET PO SCH (06:52)
[2021-07-17 06:53] LABS: HEMATOCRIT. 25.6 % (36.0-48.0); HEMOGLOBIN. 8.5 g/dL (12.0-16.0); MEAN CORPUSCULAR VOLUME 93.2 fL (81.0-99.0); MEAN PLATELET VOLUME 10.2 fl (7.4-10.4); PLATELET 69 x1000/uL (130-400); RED BLOOD CELL COUNT 2.74 mill/uL (4.2-5.4); RED CELL DISTRIBUTION WIDTH 19.6 % (11.6-14.6)
[2021-07-17] MEDS ORDERED: POTASSIUM CHLORIDE INJ 40 MEQ in DEXT 5% WATER 250 ML IV ONE (08:00)
[2021-07-17 08:40] LABS: BG BASE EXCESS 3.2 mmol/L (-2.0-2.0); BG CARBOXYHEMOGLOBIN 0.8 % (0.5-1.5); BG DEOXYHEMOGLOBIN 4.4 % (0.0-5.0); BG FRACTION INSPIRED OXYGEN 60; BG HCO3 ACT 26.8 mmol/L (22.0-26.0); BG METHEMOGLOBIN 0.3 % (0.0-1.5); BG OXYGEN SATURATION 95.6 % (92.0-98.5); BG OXYHEMOGLOBIN 94.5 % (94.0-97.0); BG PCO2 36.8 mmHg (35.0-45.0); BG PO2 82.7 mmHg (75.0-100.0); BG SAMPLE SITE RIGHT RADIAL; BG TOTAL HEMOGLOBIN 9.2 g/dL (12.0-18.0); BG VENT MODE MASK - BIPAP
[2021-07-17] MEDS: DEXTROSE 5% WATER 1,000 ML IV SCH (09:10)
[2021-07-17] MEDS: SPIRONOLACTONE 25MG TABLET PO SCH (09:53)
[2021-07-17] MEDS: PANTOPRAZOLE SODIUM 40 MG/VIAL IV SCH ×2 (09:54→19:08)
[2021-07-17] MEDS: KCL 20MEQ/100ML X 2 FOR TOTAL KCL 40MEQ/200ML IV SCH ×2 (11:09→12:00)
[2021-07-17 11:52] LABS: PLATELET ESTIMATE DECREASED
[2021-07-17] MEDS ORDERED: METHYLPREDNISOLONE SOD SUCC 40 MG/ML VIAL IV SCH (14:00)
[2021-07-17 14:57] LABS: BG BASE EXCESS -1.3 mmol/L (-2.0-2.0); BG CARBOXYHEMOGLOBIN 0.9 % (0.5-1.5); BG DEOXYHEMOGLOBIN 14.1 % (0.0-5.0); BG FRACTION INSPIRED OXYGEN 50; BG METHEMOGLOBIN 0.3 % (0.0-1.5); BG OXYGEN SATURATION 85.7 % (92.0-98.5); BG OXYHEMOGLOBIN 84.7 % (94.0-97.0); BG PCO2 36.6 mmHg (35.0-45.0); BG PH 7.416 (7.350-7.450); BG PO2 54.3 mmHg (75.0-100.0); BG TOTAL HEMOGLOBIN 9.5 g/dL (12.0-18.0); BG TOTAL RESPIRATORY RATE 35 b/min; BG VENT MODE MASK - BIPAP
== END 2021-07-17 21:23 | disposition short-term general hospital (02) | DRG 871 ==
LOC: ER 13:59 → EDBEDREQ 14:54 → 5WST 15:46 → EDBEDREQTM 15:48 → EDBEDREQ 15:48 → SUPCPDRO 18:05 → ENRESERV 19:52 → 3WST 07-06 05:34 → CVICU 07-06 09:59 → 3WST 07-07 16:36
PROVIDERS: ADMIT Internal Medicine; ATTEND Internal Medicine
PROC: 30233K1 Transfusion of Nonautologous Frozen Plasma into Peripheral Vein, Percutaneous Approach (ICD-10-PCS; 2021-07-06)
PROC: 02H633Z Insertion of Infusion Device into Right Atrium, Percutaneous Approach (ICD-10-PCS; principal; 2021-07-07)
PROC: 0W9G3ZZ Drainage of Peritoneal Cavity, Percutaneous Approach (ICD-10-PCS; 2021-07-07)
PROC: 30233N1 Transfusion of Nonautologous Red Blood Cells into Peripheral Vein, Percutaneous Approach (ICD-10-PCS; 2021-07-07)
PROC: 5A09357 Assistance with Respiratory Ventilation, Less than 24 Consecutive Hours, Continuous Positive Airway Pressure (ICD-10-PCS; 2021-07-08)
PROC: 5A09557 Assistance with Respiratory Ventilation, Greater than 96 Consecutive Hours, Continuous Positive Airway Pressure (ICD-10-PCS; 2021-07-09)
PROC: 30233R1 Transfusion of Nonautologous Platelets into Peripheral Vein, Percutaneous Approach (ICD-10-PCS; 2021-07-16)
DX: A41.51 Sepsis due to Escherichia coli [E. coli] (principal); J18.9 Pneumonia, unspecified organism; I50.33 Acute on chronic diastolic (congestive) heart failure; J96.01 Acute respiratory failure with hypoxia; E43 Unspecified severe protein-calorie malnutrition; K72.00 Acute and subacute hepatic failure without coma; N17.9 Acute kidney failure, unspecified; I13.0 Hypertensive heart and chronic kidney disease with heart failure and stage 1 through stage 4 chronic kidney disease, or unspecified chronic kidney disease; R18.8 Other ascites; D68.9 Coagulation defect, unspecified; N39.0 Urinary tract infection, site not specified; E87.2 Acidosis; N18.4 Chronic kidney disease, stage 4 (severe); D84.9 Immunodeficiency, unspecified; E87.0 Hyperosmolality and hypernatremia; K92.1 Melena; I82.622 Acute embolism and thrombosis of deep veins of left upper extremity; K76.6 Portal hypertension; K74.60 Unspecified cirrhosis of liver; E78.00 Pure hypercholesterolemia, unspecified; D64.9 Anemia, unspecified; E03.9 Hypothyroidism, unspecified; Z20.822 Contact with and (suspected) exposure to COVID-19; K76.0 Fatty (change of) liver, not elsewhere classified; E87.6 Hypokalemia; E83.42 Hypomagnesemia; D69.6 Thrombocytopenia, unspecified; I49.3 Ventricular premature depolarization; Z68.28 Body mass index [BMI] 28.0-28.9, adult; Z90.49 Acquired absence of other specified parts of digestive tract; Z81.8 Family history of other mental and behavioral disorders; Z86.718 Personal history of other venous thrombosis and embolism; Z79.899 Other long term (current) drug therapy; Z78.1 Physical restraint status; Z87.01 Personal history of pneumonia (recurrent)
CPT/HCPCS: 36415; 36600; 49083; 71045; 71250; 76700; 76937; 80048; 80053; 80076; 81003; 82043; 82140; 82270; 82375; 82570; 82607; 82728; 82746; 82805; 83540; 83550; 83605; 83615; 83735; 83880; 83935; 84100; 84145; 84300; 84443; 84484; 85018; 85025; 85027; 86022; 86140; 86850; 86900; 86920; 86927; 86945; 87077; 87186; 87426; 92610; 92950; 93005; 93306; 93970; 93971; 94640; 94660; 99291; A4565; C1725; C9113; J0696; J1100; J1644; J1650; J1940; J2370; J2543; J2920; J2930; J3430; J3475; J3480; J3490; J7040; J7060; J7070; P9016; P9017; P9034